=== PATIENT | female | born 1975 | race Caucasian/White ===

== ENCOUNTER 2016-11-01 21:09 | Observation (INO) | payer MEDICAID ==
[2016-11-01] MEDS ORDERED: PREN-88 PO (23:05)
[2016-11-01] MEDS ORDERED: AZIT1PAC7 PO (23:08)
[2016-11-01] MEDS ORDERED: AZIT250T PO (23:08)
== END 2016-11-01 23:12 | disposition home or self-care (01) ==
LOC: L&D 21:09
PROVIDERS: ADMIT Obstetrics & Gynecology; ATTEND Obstetrics & Gynecology
DX: O26.899 Other specified pregnancy related conditions, unspecified trimester (principal); R05 Cough; R03.0 Elevated blood-pressure reading, without diagnosis of hypertension; Z3A.00 Weeks of gestation of pregnancy not specified
CPT/HCPCS: G0378 ×2; 99281

== ENCOUNTER 2016-11-01 22:03 | Emergency (ER) | payer MEDICAID ==
[~2016-11-01] VITALS: Ht 154.9 cm; Wt 79.5 kg
[2016-11-01] MEDS ORDERED: SODIUM CHLORIDE 0.9% 1,000 ML IV ONE (22:33)
[2016-11-01] MEDS ORDERED: ALBUTEROL (0.083%) 2.5MG/3ML NEB HHN STA (22:33)
[2016-11-01] MEDS ORDERED: ONDANSETRON 4MG ODT PO STA (22:33)
[2016-11-01 22:48] LABS: BASOPHILS % 0.4 % (0.0-2.0); EOSINOPHILS % 1.1 % (0.0-5.0); HEMATOCRIT. 36.1 % (36.0-48.0); HEMOGLOBIN. 12.6 g/dL (12.0-16.0); MEAN CORPUSCULAR HEMOGLOBIN 31.2 pg (28.0-32.0); MEAN CORPUSCULAR VOLUME 89.5 fL (81.0-99.0); MONOCYTES % 5.3 % (2.0-8.0); NEUTROPHILS % 78.2 % (40.0-76.0); PLATELET 304 x1000/uL (130-400); RED BLOOD CELL COUNT 4.03 mill/uL (4.2-5.4); RED CELL DISTRIBUTION WIDTH 13.7 % (11.6-14.6)
[2016-11-01 22:54] LABS: CHLORIDE 107 mEq/L (98-107)
[2016-11-01 23:04] LABS: CARBON DIOXIDE 22 mEq/L (21-32)
[2016-11-01] MEDS ORDERED: PREN-88 PO (23:05)
[2016-11-01] MEDS ORDERED: AZIT1PAC7 PO (23:08)
[2016-11-01] MEDS ORDERED: AZIT250T PO (23:08)
[2016-11-01 23:51] LABS: CLARITY URINE CLEAR (CLEAR); COLOR URINE YELLOW (YELLOW); GLUCOSE URINE NEGATIVE (NEGATIVE); KETONES URINE NEGATIVE (NEGATIVE); LEUKOCYTE ESTERASE URINE NEGATIVE (NEGATIVE); NITRITE URINE NEGATIVE (NEGATIVE); OCCULT BLOOD URINE TRACE (NEGATIVE); PROTEIN URINE NEGATIVE (NEGATIVE); SPECIFIC GRAVITY URINE 1.006 (1.005-1.030); UROBILINOGEN URINE 0.2 E.U./dL (0.2-1.0)
[2016-11-02 03:56] VITALS: BP 128/79
== END 2016-11-02 04:02 | disposition home or self-care (01) ==
LOC: ER 22:07
DX: O99.512 Diseases of the respiratory system complicating pregnancy, second trimester (principal); J40 Bronchitis, not specified as acute or chronic; O16.2 Unspecified maternal hypertension, second trimester; O24.419 Gestational diabetes mellitus in pregnancy, unspecified control; Z3A.23 23 weeks gestation of pregnancy
CPT/HCPCS: 36415; 71010; 80053; 81001; 83880; 85025; 93005; 94640; 96360; 96361; 99285; J7030; J7611; Z7610

== ENCOUNTER 2016-11-11 20:17 | Observation (INO) | payer MEDICAID ==
[~2016-11-11] VITALS: Ht 154.9 cm; Wt 78.5 kg
[2016-11-11] MEDS ORDERED: LACTATED RINGERS 1,000 ML IV SCH (20:56)
[2016-11-11] MEDS ORDERED: CEFAZOLIN 2,000 MG in DEXT 5% WATER 100 ML IV NR (21:00)
[2016-11-11 21:22] LABS: CLARITY URINE CLEAR (CLEAR); COLOR URINE YELLOW (YELLOW); GLUCOSE URINE NEGATIVE (NEGATIVE); KETONES URINE NEGATIVE (NEGATIVE); LEUKOCYTE ESTERASE URINE NEGATIVE (NEGATIVE); NITRITE URINE NEGATIVE (NEGATIVE); OCCULT BLOOD URINE 2+ (NEGATIVE); PROTEIN URINE NEGATIVE (NEGATIVE); SPECIFIC GRAVITY URINE 1.006 (1.005-1.030); UROBILINOGEN URINE 0.2 E.U./dL (0.2-1.0)
[2016-11-11 21:27] LABS: BASOPHILS % 0.7 % (0.0-2.0); EOSINOPHILS % 1.7 % (0.0-5.0); HEMATOCRIT. 32.4 % (36.0-48.0); HEMOGLOBIN. 11.3 g/dL (12.0-16.0); LYMPHOCYTES % 20.5 % (20.0-50.0); MEAN CORPUSCULAR HEMOGLOBIN 31.4 pg (28.0-32.0); MEAN CORPUSCULAR VOLUME 89.8 fL (81.0-99.0); MEAN PLATELET VOLUME 8.7 fl (7.4-10.4); MONOCYTES % 7.8 % (2.0-8.0); NEUTROPHILS % 69.3 % (40.0-76.0); PLATELET 278 x1000/uL (130-400); RED BLOOD CELL COUNT 3.61 mill/uL (4.2-5.4); RED CELL DISTRIBUTION WIDTH 13.6 % (11.6-14.6)
[2016-11-11] MEDS ORDERED: FAMO20TA8 PO (22:16)
[2016-11-11] MEDS ORDERED: PREN-88 PO (22:16)
[2016-11-11] MEDS ORDERED: ALBU6.7H INH (22:16)
[2016-11-11] MEDS ORDERED: AZIT500T5 PO (22:16)
== END 2016-11-12 00:01 | disposition home or self-care (01) ==
LOC: L&D 20:17
PROVIDERS: ADMIT Obstetrics & Gynecology; ATTEND Obstetrics & Gynecology
DX: O46.92 Antepartum hemorrhage, unspecified, second trimester (principal); Z3A.24 24 weeks gestation of pregnancy
CPT/HCPCS: 36415; 76805; 81001; 85025; 96360; 96365; 99281; G0378; J0690; J7120; J7060

== ENCOUNTER 2017-01-02 19:08 | Emergency (ER) | payer MEDICAID ==
[~2017-01-02] VITALS: Ht 154.9 cm; Wt 82.0 kg
[~2017-01-02 19:08] MED LIST: ALBU6.7H INH; AZIT500T5 PO; FAMO20TA8 PO; PREN-88 PO
[2017-01-02] MEDS ORDERED: GLYB2.5T4 PO (21:39)
[2017-01-02] MEDS ORDERED: MAGN400C PO (21:41)
[2017-01-02] MEDS ORDERED: MONT10TA21 PO (21:41)
[2017-01-02] MEDS ORDERED: IRON1CAP20 PO (21:41)
[2017-01-02] MEDS ORDERED: MAGNESIUM 2 G PREMIX 50 ML IV STA (22:36)
[2017-01-02] MEDS ORDERED: METHYLPREDNISOLONE SOD SUCC 125 MG/2 ML VIAL IV STA (22:36)
[2017-01-02] MEDS ORDERED: IPRATROPIUM BROMIDE (0.02%) 0.5MG/2.5ML NEB HHN STA (22:36)
[2017-01-02] MEDS ORDERED: ALBUTEROL (0.083%) 2.5MG/3ML NEB HHN STA (22:36)
[2017-01-03 03:28] VITALS: BP 118/77
== END 2017-01-03 03:42 | disposition home or self-care (01) ==
LOC: ER 19:08 → UNDOADMOB 20:44 → L&D 20:44 → UNDODISOB 22:00 → ER 01-03 03:42
DX: O99.513 Diseases of the respiratory system complicating pregnancy, third trimester (principal); J45.909 Unspecified asthma, uncomplicated; E11.9 Type 2 diabetes mellitus without complications; Z3A.34 34 weeks gestation of pregnancy
CPT/HCPCS: 71010; 94640; 96365; 96366; 96375; 99285; J2930; J3475; J7611; 96361; 96374

== ENCOUNTER 2017-05-01 15:18 | Emergency (ER) | payer MEDICAID ==
[~2017-05-01] VITALS: Ht 154.9 cm; Wt 74.0 kg
[~2017-05-01 15:18] MED LIST changes: -AZIT500T5 PO; -FAMO20TA8 PO; +GLYB2.5T4 PO; +IRON1CAP20 PO; +MAGN400C PO; +MONT10TA21 PO
[2017-05-01] MEDS: VISCOUS LIDOCAINE 2% 15 ML UDC MM ONE (17:15)
[2017-05-01] MEDS: MAGNESIUM/ALUMINUM HYDROXIDE/SIMETHICONE 30ML UDC PO ONE ×2 (17:15→19:21)
[2017-05-01 17:26] LABS: BASOPHILS % 0.3 % (0.0-2.0); EOSINOPHILS % 2.1 % (0.0-5.0); HEMATOCRIT. 39.5 % (36.0-48.0); HEMOGLOBIN. 13.1 g/dL (12.0-16.0); LYMPHOCYTES % 18.4 % (20.0-50.0); MEAN CORPUSCULAR HEMOGLOBIN 29.2 pg (28.0-32.0); MEAN CORPUSCULAR VOLUME 87.7 fL (81.0-99.0); MONOCYTES % 6.7 % (2.0-8.0); NEUTROPHILS % 72.5 % (40.0-76.0); PLATELET 352 x1000/uL (130-400); RED CELL DISTRIBUTION WIDTH 13.1 % (11.6-14.6)
[2017-05-01 17:30] LABS: CHLORIDE 106 mEq/L (98-107)
[2017-05-01 17:33] LABS: INR 1.1; PARTIAL THROMBOPLASTIN TIME 27.3 sec (23.4-31.0); PROTHROMBIN TIME 11.5 sec (9.4-11.6)
[2017-05-01 17:39] LABS: CARBON DIOXIDE 25 mEq/L (21-32)
[2017-05-01 17:52] LABS: CLARITY URINE CLEAR (CLEAR); COLOR URINE YELLOW (YELLOW); KETONES URINE TRACE (NEGATIVE); LEUKOCYTE ESTERASE URINE NEGATIVE (NEGATIVE); NITRITE URINE NEGATIVE (NEGATIVE); OCCULT BLOOD URINE NEGATIVE (NEGATIVE); PROTEIN URINE NEGATIVE (NEGATIVE); SPECIFIC GRAVITY URINE 1.035 (1.005-1.030); UROBILINOGEN URINE 0.2 E.U./dL (0.2-1.0)
[2017-05-01] MEDS: VISCOUS LIDOCAINE 2% 15 ML UDC MM STA (19:21)
[2017-05-01] MEDS: LORAZEPAM 1MG TABLET PO ONE (20:00)
[2017-05-01 20:11] VITALS: BP 147/76
== END 2017-05-01 20:53 | disposition home or self-care (01) ==
LOC: ER 17:08
DX: K29.00 Acute gastritis without bleeding (principal); E11.9 Type 2 diabetes mellitus without complications; Z90.49 Acquired absence of other specified parts of digestive tract
CPT/HCPCS: 36415; 80053; 81003; 81025; 83690; 85025; 85610; 85730; 99284

== ENCOUNTER 2023-08-17 20:00 | Emergency (ER) | payer MEDICAID, OTHER ==
[~2023-08-17] VITALS: Ht 162.6 cm; Wt 75.0 kg
[~2023-08-17 20:00] MED LIST changes: -ALBU6.7H INH; +ALBU6.7H15 INH; +MONT-46 PO; -MONT10TA21 PO
[2023-08-17 20:06] VITALS: TEMP 98.9; O2SAT 100
[2023-08-17 21:13] LABS: BASOPHILS % 0.4 % (0.0-2.0); CARBON DIOXIDE 26 mEq/L (21-32); CHLORIDE 103 mEq/L (98-107); EOSINOPHILS % 2.4 % (0.0-5.0); HEMATOCRIT. 35.2 % (36.0-48.0); HEMOGLOBIN. 11.9 g/dL (12.0-16.0); LYMPHOCYTES % 38.6 % (20.0-50.0); MEAN CORPUSCULAR HEMOGLOBIN 30.4 pg (28.0-32.0); MEAN CORPUSCULAR HGB CONC 33.7 g/dL (31.0-37.0); MEAN CORPUSCULAR VOLUME 90.3 fL (81.0-99.0); MEAN PLATELET VOLUME 7.7 fl (7.4-10.4); MONOCYTES % 8.3 % (2.0-8.0); NEUTROPHILS % 50.3 % (40.0-76.0); PLATELET 374 x1000/uL (130-400); POTASSIUM 4.2 mEq/L (3.5-5.1); RED CELL DISTRIBUTION WIDTH 14.1 % (11.6-14.6); SODIUM 134 mEq/L (136-145); WHITE BLOOD COUNT 9.4 x1000/uL (4.5-11.0)
[2023-08-17 21:14] LABS: CALCIUM 9.5 mg/dL (8.7-10.4)
[2023-08-17 21:18] LABS: CREATININE 0.7 mg/dL (0.6-1.0); GLUCOSE 102 mg/dL (70-105)
[2023-08-17 21:19] LABS: UREA NITROGEN BLOOD 20 mg/dL (9-23)
[2023-08-17 21:20] LABS: ALANINE AMINOTRANSFERASE 39 IU/L (10-49); ALBUMIN 3.9 g/dL (3.2-4.8); ASPARTATE AMINOTRANSFERASE 83 IU/L (<34)
[2023-08-17 21:21] LABS: BILIRUBIN DIRECT < 0.1 mg/dL (<=3.0); BILIRUBIN TOTAL 0.3 mg/dL (0.1-1.0); PROTEIN TOTAL 7.4 g/dL (6.0-8.3)
[2023-08-17] MEDS: ACETAMINOPHEN 325MG TABLET PO NR (22:15)
[2023-08-17] MEDS: MAGNESIUM/ALUMINUM HYDROXIDE/SIMETHICONE 30ML UDC PO ONE (22:15)
[2023-08-17] MEDS: ONDANSETRON 4MG ODT PO ONE (22:15)
[2023-08-17] MEDS: VISCOUS LIDOCAINE 2% 15 ML UDC PO NR (22:30)
[2023-08-17] MEDS ORDERED: PROT40 MT (23:23)
[2023-08-17] MEDS ORDERED: ONDA4TAB50 MT (23:23)
[2023-08-17] MEDS ORDERED: MAG355OR21 MT (23:23)
[2023-08-17 23:30] VITALS: BP 104/62; PULSE 80; RESP 18
== END 2023-08-17 23:30 | disposition home or self-care (01) ==
LOC: ER 20:00
DX: K29.70 Gastritis, unspecified, without bleeding (principal); E11.9 Type 2 diabetes mellitus without complications; I10 Essential (primary) hypertension; Z90.49 Acquired absence of other specified parts of digestive tract; Z79.899 Other long term (current) drug therapy
CPT/HCPCS: 80076; 80048; 85025; 36415; 71045; 93005; 99285; Q0162; Z7610